=== PATIENT | female | born 1990 | race African-American/Black ===

== ENCOUNTER → 2017-09-05 | Outpatient (CLI) | payer OTHER ==
[~2017-09-05] MED LIST: GADAVIST IV PRN
--- NOTE | 2017-09-05 07:57 | DIAGNOSTIC IMAGING REPORT ---
MRI OF THE BRAIN COMBO CLINICAL HISTORY: Headache. COMPARISON STUDY: No priors. TECHNIQUE: MRI of the brain was performed utilizing various T1 and T2-weighted sequences in the axial, sagittal, and coronal planes. Contrast-enhanced sequences were acquired following the administration of 5 cc of Gadavist. FINDINGS: Brain parenchyma: The brain parenchyma is normal in appearance. There is no hemorrhage or mass effect. There is no restricted diffusion to suggest acute ischemia. No enhancing mass lesion is identified on the postcontrast images. Langford-white matter differentiation is preserved. No extra-axial fluid collection is seen. There is minimal cerebellar tonsillar ectopia. The tonsils project 4 mm below the foramen magnum. Ventricles, sulci, and cisterns: Normal in configuration. Pituitary and sella: Unremarkable. Intracranial vasculature: Normal flow voids are maintained at the skull base. Orbits: The bony orbits are grossly intact. Orbital contents are normal in appearance. Sinuses and mastoids: There are tiny retention cyst present within the maxillary antra. Trace fluid is noted in the left maxillary sinus. The remaining paranasal sinuses are clear, and the mastoid air cells are well pneumatized. Calvarium: Unremarkable. Cervical cord: Partially visualized cervical spinal cord is normal in morphology and signal intensity. IMPRESSION: No acute intracranial abnormality. Electronically signed by: Nestor Espinoza M.D. 09/05/2017 7:55 AM Dictated Date/Time: 09/05/2017 7:52 AM
== END | disposition home or self-care (01) ==
PROVIDERS: ATTEND Physician Assistant
DX: R51 Headache (principal)

== ENCOUNTER 2018-03-03 09:05 | Emergency (ER) | payer OTHER ==
[~2018-03-03] VITALS: Ht 160 cm; Wt 54.0 kg
[~2018-03-03 09:05] MED LIST changes: +ADAL40KI SC; +ATROPO OPL; +BCPILLS PO; +BIOT1CAP8 PO; +BUDE1TAB; +CYCL100C3 PO; +FOLI1TAB8 PO; -GADAVIST IV PRN; +PANT40TA PO; +PRED1SUS3 OPL; +SUMA50TA15 PO; +THEA1CAP PO; +[UNRECOGNIZED DRUG - CODE] IM
[2018-03-03 09:12] VITALS: TEMP 37.3; Ht 160 cm; Wt 54.0 kg
[2018-03-03] MEDS ORDERED: PRED1SUS3 OPL (09:43)
[2018-03-03] MEDS ORDERED: ADALKIT SQ (09:43)
[2018-03-03] MEDS ORDERED: BIOT1CAP9 PO (09:43)
[2018-03-03] MEDS ORDERED: BUDE1TAB PO (09:43)
[2018-03-03] MEDS ORDERED: BCPILLS PO (09:45)
[2018-03-03 09:46] LABS: BASO % 1.3 %; BASO ABS # 0.06 K/uL (0-0.2); EOS % 0.8 %; EOS ABS # 0.04 K/uL (0-0.5); HEMATOCRIT 40.3 % (37-47); HEMOGLOBIN 13.3 g/dL (12.0-16.0); IG# 0.01 K/uL (0.00-0.02); LYMPH % 40.1 %; MEAN CORPUSCULAR HEMOGLOBIN 27.7 pg (25-34); MEAN PLATELET VOLUME 12.1 fL (7.4-10.4); MONO ABS # 0.71 K/uL (0.11-0.59); NEUT % 42.6 %; NEUT ABS # 2.02 K/uL (1.4-6.5); PLATELET COUNT 252 K/uL (130-400); RED CELL DISTRIBUTION WIDTH CV 15.3 % (11.5-14.5); RED CELL DISTRIBUTION WIDTH SD 46.9 fL (36.4-46.3); WHITE BLOOD COUNT 4.74 K/uL (4.8-10.8)
[2018-03-03 10:09] LABS: ALBUMIN 3.3 gm/dl (3.4-5.0); CALCIUM 8.6 mg/dl (8.5-10.1); CREATININE 0.72 mg/dl (0.60-1.20); POTASSIUM 3.8 mmol/L (3.5-5.1); TOTAL PROTEIN 7.6 gm/dl (6.4-8.2)
--- NOTE | 2018-03-03 11:04 | DIAGNOSTIC IMAGING REPORT ---
BILIARY ULTRASOUND CLINICAL HISTORY: Elevated LFTs COMPARISON STUDY: No previous studies for comparison. FINDINGS: The pancreas appears sonographically normal. No hepatic masses are visualized. There is no ductal dilatation. The gallbladder appears sonographically normal. The common bile duct measures 3 mm. There is no right-sided hydronephrosis. IMPRESSION: Normal biliary ultrasound. Electronically signed by: Prieto Bonner M.D. 03/03/2018 11:03 AM Dictated Date/Time: 03/03/2018 11:01 AM
[2018-03-03] MEDS ORDERED: OPTIRAY 320 IV PRN (12:00)
--- NOTE | 2018-03-03 12:57 | DIAGNOSTIC IMAGING REPORT ---
ABDOMEN AND PELVIS CT WITH IV AND ORAL CONTRAST CT DOSE: 258.70 mGy.cm HISTORY: Acutely elevated LFTs with acute generalized abdominal pain. History of inflammatory bowel disease. elevated lfts abd pain and chrons TECHNIQUE: Multiaxial CT images of the abdomen and pelvis were performed following the use of intravenous and oral contrast. A dose lowering technique was utilized adhering to the principles of ALARA. COMPARISON STUDY: Right upper quadrant ultrasound of same day. FINDINGS: Lung bases are clear. There is no pneumatosis or pneumoperitoneum identified. Imaged inferior cardiac chambers are unremarkable. Gallbladder, liver, spleen, pancreas and adrenal glands are unremarkable. There is no intrahepatic biliary ductal dilation or focal hepatic mass lesions identified. Kidneys, ureters and bladder are unremarkable. Phleboliths of the pelvis. Uterus and adnexa are also unremarkable. The aorta and IVC appear to be within normal limits. There are no pathologically enlarged lymph nodes identified. There is no bowel obstruction identified. There is no definite focal bowel wall thickening, drainable fluid collections or mesenteric inflammation identified. The visualized appendix is contrast filled and appears noninflamed. The terminal ileum appears unremarkable. No sinus or fistulous tracts identified. The soft tissues and imaged breast parenchyma appear unremarkable. Incomplete bony fusion involves the posterior elements at S1. Bones appear intact. Benign-appearing bone island of the left iliac wing. IMPRESSION: 1. No acute intra-abdominal or intrapelvic abnormality identified. 2. No bowel obstruction or focal bowel wall thickening. Electronically signed by: Carloz Delcid M.D. 03/03/2018 12:56 PM Dictated Date/Time: 03/03/2018 12:46 PM
[2018-03-03 13:47] VITALS: BP 92/56; PULSE 85; O2SAT 97
--- NOTE | 2018-03-03 16:24 | EMERGENCY ROOM VISIT NOTE ---
History Report prepared by Deyanira: Giselle Rascon Under the Supervision of: Dr. Tonny Ennis D.O. First contact with patient: 09:25 Chief Complaint: ABDOMINAL PAIN Stated Complaint: LOWER BACK/RIGHT SIDE PAIN Nursing Triage Summary: Patient reports several weeks of blood tests showing increasingly elevated LFT's History of Present Illness The patient is a 28 year old female who presents to the Emergency Room with complaints of constant abdominal pain starting 1.5 weeks ago. The patient states that she has been having back pain that radiates to her abdomen on the left side. She states that the back pain is across her whole lower back, but it is worse on the left. The patient complains of nausea and hematochezia. She notes that the blood was bright red and that she has a history of Crohn's Disease. The patient notes that she has a history of chronic uveitis and that her LFTs in her last blood work were elevated. The patient denies recent vomiting, fever, cough, urinary symptoms, and rhinorrhea. She notes that her LNMP was on December 06, but she is on control that she only has her menstrual cycle once every 3 months. Source of History: patient Onset: 1.5 weeks ago Position: abdomen Quality: other (radiating) Timing: constant Associated Symptoms: + nausea, + back pain, + hematochezia, No fevers, No cough, No vomiting, No urinary symptoms Note: The patient denies rhinorrhea. Review of Systems See HPI for pertinent positives & negatives. A total of 10 systems reviewed and were otherwise negative. Past Medical & Surgical Medical Problems: (1) Chronic uveitis (2) Crohns disease Family History Patient reports no known family medical history. Social History Smoking Status: Never Smoker Marital Status: single Housing Status: lives with family Occupation Status: [employer] student Current/Historical Medications Scheduled Adalimumab (Humira Pen-Crohns Disease), 40 MG SQ WK Biotin (Biotin), 10 MG PO DAILY Control Pills ( Control Pills), 1 TAB PO DAILY Budesonide (Uceris), 9 MG PO DAILY Cyclosporine (Cyclosporine), 100 MG PO DAILY Folic Acid (Folvite), 2 MG PO DAILY Methotrexate Sodium (Methotrexate), 25 MG IM WK Pantoprazole (Protonix), 40 MG PO BID Prednisolone Acetate (Ophth) (Pred Forte 1% Oph), 1 DROPS OPL BID Sumatriptan Succinate (Imitrex), 50 MG PO PRN Theanine (L-Theanine), 200 MG PO 3XWK Allergies Coded Allergies: NO KNOWN DRUG ALLERGIES (Verified Allergy, Unknown, ., 03/03/18) Physical Exam Vital Signs Date Time Temp Pulse Resp B/P (MAP) Pulse Ox O2 Delivery O2 Flow Rate FiO2 03/03/18 13:47 85 20 92/56 97 Room Air 03/03/18 12:10 82 23 03/03/18 11:35 82 20 97 03/03/18 11:05 93 16 97 03/03/18 11:02 102/68 03/03/18 10:31 106/70 03/03/18 10:31 89 18 106/70 98 Room Air 03/03/18 10:05 94 16 03/03/18 09:47 96 03/03/18 09:12 37.3 100 20 119/71 96 Room Air Physical Exam GENERAL: Sitting up in bed, alert, well appearing, well nourished, no distress, non-toxic EYE EXAM: normal conjunctiva. OROPHARYNX: no exudate, no erythema, lips, buccal mucosa, and tongue normal and mucous membranes are moist NECK: supple, no nuchal rigidity, no adenopathy, non-tender LUNGS: Clear to auscultation. Normal chest wall mechanics HEART: no murmurs, S1 normal and S2 normal ABDOMEN: abdomen soft, minimal tenderness in the left flank, normo-active bowel sounds, no masses, no rebound or guarding. BACK: Back is symmetrical on inspection and there is no deformity, no midline tenderness, no CVA tenderness. SKIN: no rashes and no bruising UPPER EXTREMITIES: upper extremities are grossly normal. LOWER EXTREMITIES: No pitting edema. NEURO EXAM: Normal sensorium, cranial nerves II-XII grossly intact, normal speech, no gross weakness of arms, no gross weakness of legs. Medical Decision & Procedures ER Provider Diagnostic Interpretation: Radiology results as stated below per my review and the radiologist's interpretation: BILIARY ULTRASOUND CLINICAL HISTORY: Elevated LFTs COMPARISON STUDY: No previous studies for comparison. FINDINGS: The pancreas appears sonographically normal. No hepatic masses are visualized. There is no ductal dilatation. The gallbladder appears sonographically normal. The common bile duct measures 3 mm. There is no right-sided hydronephrosis. IMPRESSION: Normal biliary ultrasound. Electronically signed by: Prieto Bonner M.D. 03/03/2018 11:03 AM Dictated Date/Time: 03/03/2018 11:01 AM ABDOMEN AND PELVIS CT WITH IV AND ORAL CONTRAST CT DOSE: 258.70 mGy.cm HISTORY: Acutely elevated LFTs with acute generalized abdominal pain. History of inflammatory bowel disease. elevated lfts abd pain and chrons TECHNIQUE: Multiaxial CT images of the abdomen and pelvis were performed following the use of intravenous and oral contrast. A dose lowering technique was utilized adhering to the principles of ALARA. COMPARISON STUDY: Right upper quadrant ultrasound of same day. FINDINGS: Lung bases are clear. There is no pneumatosis or pneumoperitoneum identified. Imaged inferior cardiac chambers are unremarkable. Gallbladder, liver, spleen, pancreas and adrenal glands are unremarkable. There is no intrahepatic biliary ductal dilation or focal hepatic mass lesions identified. Kidneys, ureters and bladder are unremarkable. Phleboliths of the pelvis. Uterus and adnexa are also unremarkable. The aorta and IVC appear to be within normal limits. There are no pathologically enlarged lymph nodes identified. There is no bowel obstruction identified. There is no definite focal bowel wall thickening, drainable fluid collections or mesenteric inflammation identified. The visualized appendix is contrast filled and appears noninflamed. The terminal ileum appears unremarkable. No sinus or fistulous tracts identified. The soft tissues and imaged breast parenchyma appear unremarkable. Incomplete bony fusion involves the posterior elements at S1. Bones appear intact. Benign-appearing bone island of the left iliac wing. IMPRESSION: 1. No acute intra-abdominal or intrapelvic abnormality identified. 2. No bowel obstruction or focal bowel wall thickening. Electronically signed by: Carloz Delcid M.D. 03/03/2018 12:56 PM Dictated Date/Time: 03/03/2018 12:46 PM Laboratory Results 03/03/18 09:30 Red Blood Count 4.80, Mean Corpuscular Volume 84.0, Mean Corpuscular Hemoglobin 27.7, Mean Corpuscular Hemoglobin Concent 33.0, Mean Platelet Volume 12.1, Neutrophils (%) (Auto) 42.6, Lymphocytes (%) (Auto) 40.1, Monocytes (%) (Auto) 15.0, Eosinophils (%) (Auto) 0.8, Basophils (%) (Auto) 1.3, Neutrophils # (Auto ) 2.02, Lymphocytes # (Auto) 1.90, Monocytes # (Auto) 0.71, Eosinophils # (Auto ) 0.04, Basophils # (Auto) 0.06 03/03/18 09:30 Test 03/03/18 09:30 03/03/18 09:32 03/03/18 10:18 White Blood Count 4.74 K/uL (4.8-10.8) Red Blood Count 4.80 M/uL (4.2-5.4) Hemoglobin 13.3 g/dL (12.0-16.0) Hematocrit 40.3 % (37-47) Mean Corpuscular Volume 84.0 fL (80-100) Mean Corpuscular Hemoglobin 27.7 pg (25-34) Mean Corpuscular Hemoglobin Concent 33.0 g/dl (32-36) Platelet Count 252 K/uL (130-400) Mean Platelet Volume 12.1 fL (7.4-10.4) Neutrophils (%) (Auto) 42.6 % Lymphocytes (%) (Auto) 40.1 % Monocytes (%) (Auto) 15.0 % Eosinophils (%) (Auto) 0.8 % Basophils (%) (Auto) 1.3 % Neutrophils # (Auto) 2.02 K/uL (1.4-6.5) Lymphocytes # (Auto) 1.90 K/uL (1.2-3.4) Monocytes # (Auto) 0.71 K/uL (0.11-0.59) Eosinophils # (Auto) 0.04 K/uL (0-0.5) Basophils # (Auto) 0.06 K/uL (0-0.2) RDW Standard Deviation 46.9 fL (36.4-46.3) RDW Coefficient of Variation 15.3 % (11.5-14.5) Immature Granulocyte % (Auto) 0.2 % Immature Granulocyte # (Auto) 0.01 K/uL (0.00-0.02) Prothrombin Time 10.5 SECONDS (9.0-12.0) Prothromb Time International Ratio 1.0 (0.9-1.1) Anion Gap 8.0 mmol/L (3-11) Est Creatinine Clear Calc Drug Dose 95.3 ml/min Estimated GFR () 131.2 Estimated GFR (Non- 113.2 BUN/Creatinine Ratio 9.6 (10-20) Calcium Level 8.6 mg/dl (8.5-10.1) Total Bilirubin 0.4 mg/dl (0.2-1) Direct Bilirubin 0.1 mg/dl (0-0.2) Aspartate Amino Transf (AST/SGOT) 138 U/L (15-37) Alanine Aminotransferase (ALT/SGPT) 538 U/L (12-78) Alkaline Phosphatase 47 U/L (45-117) Total Protein 7.6 gm/dl (6.4-8.2) Albumin 3.3 gm/dl (3.4-5.0) Lipase 76 U/L (73-393) Urine Color DK YELLOW Urine Appearance CLEAR (CLEAR) Urine pH 5.5 (4.5-7.5) Urine Specific [place] 1.024 (1.000-1.030) Urine Protein NEG (NEG) Urine Glucose (UA) NEG (NEG) Urine Ketones TRACE (NEG) Urine Occult Blood NEG (NEG) Urine Nitrite NEG (NEG) Urine Bilirubin NEG (NEG) Urine Urobilinogen NEG (NEG) Urine Leukocyte Esterase NEG (NEG) Urine WBC (Auto) 1-5 /hpf (0-5) Urine RBC (Auto) 5-10 /hpf (0-4) Urine Hyaline Casts (Auto) 1-5 /lpf (0-5) Urine Epithelial Cells (Auto) >30 /lpf (0-5) Urine Bacteria (Auto) NEG (NEG) Urine Test NEG (NEG) Laboratory results per my review. ED Course ED COURSE: Vital signs were reviewed and showed that they were normal. The patients medical record was reviewed The above diagnostic studies were performed and reviewed. ED treatments and interventions as stated above. 0940: The patient was evaluated in room C2B. A complete history and physical examination was performed. 1109: I reevaluated the patient and updated her on her test results. 1255: I reevaluated the patient and updated her on the plan to talk to GI. 1303: I reviewed the patient's case with Dr. Jigar GAMING. He recommends checking her INR and if normal, she can follow up in the office. 1331: Upon reevaluation, the patient is resting comfortably. I discussed my findings with the patient and she understands and agrees with the treatment plan. Based on the patients age, coexisting illnesses, exam and lab findings the decision to treat as an outpatient was made. The patient remained stable while under my care. The patient appeared well at the time of discharge. Medical Decision Differential diagnoses includes but is not limited to gastritis, peptic ulcer disease, GERD, gallbladder disease, pancreatitis, small bowel obstruction, acute coronary syndrome, pericarditis, ischemic bowel, irritable bowel disease, irritable bowel syndrome, appendicitis, diverticulitis, malignancy, hernia, urinary tract infection, torsion, /ectopic , perforation, trauma, infectious. Patient is a 28-year-old female who presents the ER for 1.5 weeks of left lower back and flank pain. She notes nausea started this a.m. She does have a history of Crohn's. She takes Humira, cyclosporine and methotrexate. Patient came in for the left flank pain and also notes that she has had a transaminitis which is been present for the past 2 weeks. LFTs have been in the 600s. Patient has no other complaints at this time. CBC shows a mild leukopenia at 4.7. No anemia. BMP was unremarkable. LFTs shows ALT of 540. AST was 140. Bili was normal. Lipase is normal. Alk phos was also normal. INR was normal. UA was negative along with . Cyclosporine pending. Discussed case with Dr. Guzmán from GI who follows her up as an outpatient. Reviewed all lab work and imaging. Ultrasound of the right upper quadrant was unremarkable. CT abdomen pelvis was unremarkable as well. There is no signs of any obstructive process at this time. She does not drink alcohol. She does not take Tylenol on a regular basis. Discussed with GI and they do believe that this is likely secondary to her methotrexate. He did not recommend changing the dose at this time. They note if she is comfortable enough she can be followed up tomorrow as she has an appointment. Long discussion with the patient and she does not want to stay. I did feel is reasonable to discharge her to follow-up tomorrow with GI as an outpatient. Discussed with Pt concerning signs and symptoms to watch out for. Pt was instructed to follow up with their PCP and discussed with the patient their option to return to the ED at anytime for persistent or worsening symptoms. The appropriate anticipatory guidance and out-patient management, including indications for return to the emergency department, were explained at length to the patient and understood. Medication Reconcilliation Current Medication List: was personally reviewed by me Blood Pressure Screening Patient's blood pressure: Normal blood pressure Blood pressure disposition: Did not require urgent referral Consults Time Called: 1301 Consulting Physician: Dr. Jigar GAMING Returned Call: 1303 I reviewed the patient's case with Dr. Jigar GAMING. He recommends checking her INR and if normal, she can follow up in the office. Impression Primary Impression: Transaminitis Additional Impression: Left lower quadrant pain Scribe Attestation The scribe's documentation has been prepared under my direction and personally reviewed by me in its entirety. I confirm that the note above accurately reflects all work, treatment, procedures, and medical decision making performed by me. Departure Information Dispostion Home / Self-Care Referrals [facility] (PCP) Forms HOME CARE DOCUMENTATION FORM, IMPORTANT VISIT INFORMATION Patient Instructions My [facility] [address] Additional Instructions Please follow up with your primary care doctor with in the next 24 hours. Any worsening of your symptoms, please return to the ED immediately. This includes any fevers greater than 100.4, worsening pain, chest pain, shortness breath, yellow discoloration of the skin, persistent nausea, vomiting, unable to eat or drink, or any other concerning signs or symptoms from your standpoint. Please make sure that you keep your appointment tomorrow follow-up with GI. Please follow their recommendations. Problem Qualifiers
== END 2018-03-03 13:59 | disposition home or self-care (01) ==
LOC: C.EDB 09:07 → C.EDC 13:59
DX: R74.0 Nonspecific elevation of levels of transaminase and lactic acid dehydrogenase [LDH] (principal); R10.32 Left lower quadrant pain; D72.819 Decreased white blood cell count, unspecified; K50.90 Crohn's disease, unspecified, without complications; H20.10 Chronic iridocyclitis, unspecified eye; Z79.899 Other long term (current) drug therapy; Z79.3 Long term (current) use of hormonal contraceptives